=== PATIENT | female | born 1955 | race African-American/Black ===

== ENCOUNTER 2016-10-26 17:35 | Emergency (ER) | payer OTHER ==
[~2016-10-26] VITALS: Ht 175.3 cm; Wt 77.1 kg
[~2016-10-26 17:35] MED LIST: ALBUTEROL SULF8.5 GM INH; ATORVASTATIN CA20 MG ORAL; CITALOPRAM HBR40 M1 ORAL; DILANTIN100 MG ORAL; DILANTIN100 MG PO; FELODIPINE ER10 MG PO; GABAPENTIN800 MG ORAL; GLIPIZIDE5 MG ORAL; GLYBURIDE5 MG PO; LYRICA; LYRICA75 M1 ORAL; METFORMIN HCL1000 M1 ORAL; METFORMIN HCL500 M1 ORAL; NAPROXEN500 M2 ORAL; NIFEDICAL XL60 MG ORAL; NIFEDIPINE10 MG ORAL; NORCO 5-325 TA1 EACH ORAL; PHENYTOIN SODI100 MG ORAL; PIROXICAM; PREDNISONE20 MG ORAL; RISPERDAL; ROBAXIN-750750 MG PO; SOMA350 MG PO; VICODIN; ZITHROMAX250 MG ORAL
[2016-10-26] MEDS ORDERED: levETIRAcetam 500mg/NS100ml 100 ML IVPB ONE (18:15)
--- NOTE | 2016-10-26 18:34 | Emergency Room Report ---
History of Present Illness General Chief Complaint: Seizure Source: Patient, Family Member, Medical Record, EMS Present Illness HPI This patient has a known history of seizure disorder. The patient has not been taking her medications. There is no specific reason. Apparently she ran out. Regardless, she presents after having a seizure at home. This was witnessed by her who is not here. The patient has no specific complaints. Patient denies pain. She denies recent illness. She denies fever or chills. She has no other complaints. Allergies: Coded Allergies: No Known Allergies (Unverified , 08/12/13) Patient History Past Medical History: see triage record, DM, HTN, seizures Social History: Denies: alcohol use, drug use, smoking Reviewed Nursing Documentation: PMH: Agreed, PSxH: Agreed Nursing Documentation-PMH Past Medical History: No History, Except For Hx Cardiac Problems: No Hx Hypertension: Yes Hx Pacemaker: No Hx Asthma: No Hx COPD: No Hx Diabetes: Yes Hx Cancer: No Hx Gastrointestinal Problems: No Hx Dialysis: No Hx Neurological Problems: No Hx Cerebrovascular Accident: No Hx Seizures: Yes Review of Systems All Other Systems: negative except mentioned in HPI Physical Exam Vital Signs Date Time Temp Pulse Resp B/P Pulse Ox O2 Delivery O2 Flow Rate FiO2 10/26/16 17:32 97.3 75 16 147/68 97 Room Air Sp02 EP Interpretation: reviewed, normal General Appearance: no apparent distress, alert, GCS 15, non-toxic Head: normocephalic, atraumatic Eyes: bilateral eye PERRL, bilateral eye normal inspection ENT: hearing grossly normal, normal pharynx, no angioedema, normal voice Neck: full range of motion, supple/symm/no masses Respiratory: chest non-tender, lungs clear, normal breath sounds, speaking full sentences Cardiovascular #1: regular rate, rhythm, no edema Gastrointestinal: normal bowel sounds, non tender, soft, non-distended, no guarding, no rebound Rectal: deferred Musculoskeletal: normal range of motion, non-tender Neurologic: alert, responsive, motor strength/tone normal, sensory intact, speech normal, other - Sleepy but appropriate Psychiatric: judgement/insight normal, memory normal, mood/affect normal, no suicidal/homicidal ideation Skin: normal color, no rash, warm/dry, well hydrated Medical Decision Making Diagnostic Impression: Primary Impression: Seizure disorder Additional Impression: Noncompliance with medication regimen ER Course I suspect the seizures that the patient is presenting with is non-emergent in etiology. The patient has a history of seizures in the past and has returned to baseline with normal neurologic status. The patient is not immunocompromised with no history of known structural brain disease. The patient does not have persistent altered mental status, fever or new focal neurologic deficit. Laboratory workup was noncontributory. I doubt meningitis so a lumbar puncture was not performed. The patient was counseled that, though unlikely, the possibility of an emergent cause of seizure may still be present and that the patient should return immediately if symptoms persist or worsen. I believe the patient is stable for discharge to followup with the primary care provider for further workup. Labs Test 10/26/16 19:20 10/26/16 19:35 Urine Color Yellow Urine Appearance Clear Urine pH 6 (4.5-8.0) Urine Specific [place] 1.015 (1.005-1.035) Urine Protein 3+ (NEGATIVE) Urine Glucose (UA) Negative (NEGATIVE) Urine Ketones Negative (NEGATIVE) Urine Occult Blood Negative (NEGATIVE) Urine Nitrite Negative (NEGATIVE) Urine Bilirubin Negative (NEGATIVE) Urine Urobilinogen 4 MG/DL (0.0-1.0) Urine Leukocyte Esterase Negative (NEGATIVE) Urine RBC 0-2 /HPF (0 - 2) Urine WBC 0-2 /HPF (0 - 2) Urine Squamous Epithelial Cells Occasional /LPF Urine Bacteria Occasional /HPF (NONE) White Blood Count 8.4 K/UL (4.8-10.8) Red Blood Count 4.73 M/UL (4.20-5.40) Hemoglobin 14.4 G/DL (12.0-16.0) Hematocrit 43.6 % (37.0-47.0) Mean Corpuscular Volume 92 FL (80-99) Mean Corpuscular Hemoglobin 30.4 PG (27.0-31.0) Mean Corpuscular Hemoglobin Concent 32.9 G/DL (32.0-36.0) Red Cell Distribution Width 11.7 % (11.6-14.8) Platelet Count 134 K/UL (150-450) Mean Platelet Volume 11.5 FL (6.5-10.1) Neutrophils (%) (Auto) 79.9 % (45.0-75.0) Lymphocytes (%) (Auto) 16.7 % (20.0-45.0) Monocytes (%) (Auto) 2.7 % (1.0-10.0) Eosinophils (%) (Auto) 0.2 % (0.0-3.0) Basophils (%) (Auto) 0.5 % (0.0-2.0) Sodium Level 139 mEQ/L (135-145) Potassium Level 3.8 mEQ/L (3.4-4.9) Chloride Level 103 mEQ/L (98-107) Carbon Dioxide Level 21 mEQ/L (20-30) Anion Gap 15 (5-15) Blood Urea Nitrogen 5 mg/dL (7-23) Creatinine 0.7 mg/dL (0.5-0.9) Estimat Glomerular Filtration Rate > 60 mL/min (>60) Glucose Level 131 mg/dL (74-106) Calcium Level 8.9 mg/dL (8.6-10.2) Total Bilirubin 0.6 mg/dL (0.0-1.2) Aspartate Amino Transf (AST/SGOT) 65 U/L (5-40) Alanine Aminotransferase (ALT/SGPT) 36 U/L (3-33) Alkaline Phosphatase 220 U/L (35-104) Total Protein 7.8 g/dL (6.6-8.7) Albumin 3.7 g/dL (3.5-5.2) Globulin 4.1 g/dL Albumin/Globulin Ratio 0.9 (1.0-2.7) Serum Alcohol < 10 mg/dL EKG Diagnostic Results Rate: normal Rhythm: NSR ST Segments: no acute changes Rhythm Strip Diag. Results EP Interpretation: yes Rate: 70's Rhythm: NSR, no PVC's, no ectopy Other Impression Qwave in III Last Vital Signs Date Time Temp Pulse Resp B/P Pulse Ox O2 Delivery O2 Flow Rate FiO2 10/26/16 17:32 97.3 75 16 147/68 97 Room Air Disposition: HOME, SELF-CARE Condition: Improved Patient Instructions: Seizure, Adult JULES RONQUILLO D.O. Oct 26, 2016 18:34
[2016-10-26 18:55] VITALS: BP 161/68
[2016-10-26 19:19] VITALS: BP 149/72
[2016-10-26 19:57] LABS: BASOPHILS % (AUTO) 0.5 % (0.0-2.0); EOSINOPHILS % (AUTO) 0.2 % (0.0-3.0); LYMPHOCYTES % (AUTO) 16.7 % (20.0-45.0); MEAN CORPUSCULAR HEMOGLOBIN 30.4 PG (27.0-31.0); MEAN CORPUSCULAR HGB CONC 32.9 G/DL (32.0-36.0); MEAN CORPUSCULAR VOLUME 92 FL (80-99); MEAN PLATELET VOLUME 11.5 FL (6.5-10.1); MONOCYTES % (AUTO) 2.7 % (1.0-10.0); NEUTROPHILS % (AUTO) 79.9 % (45.0-75.0); PLATELET COUNT 134 K/UL (150-450); RED BLOOD COUNT 4.73 M/UL (4.20-5.40); RED CELL DISTRIBUTION WIDTH 11.7 % (11.6-14.8); WHITE BLOOD COUNT 8.4 K/UL (4.8-10.8)
[2016-10-26 20:16] LABS: ALANINE AMINOTRANSFERASE 36 U/L (3-33); ALBUMIN/GLOBULIN RATIO 0.9 (1.0-2.7); ALCOHOL < 10 mg/dL; ANION GAP 15 (5-15); ASPARTATE AMINO TRANSFERASE 65 U/L (5-40); CALCIUM 8.9 mg/dL (8.6-10.2); CARBON DIOXIDE 21 mEQ/L (20-30); CHLORIDE 103 mEQ/L (98-107); CREATININE 0.7 mg/dL (0.5-0.9); GLOMERULAR FILTRATION RATE > 60 mL/min (>60); HEMOLYSIS 3; POTASSIUM 3.8 mEQ/L (3.4-4.9); SODIUM 139 mEQ/L (135-145); TOTAL PROTEIN 7.8 g/dL (6.6-8.7)
[2016-10-26] MEDS ORDERED: TUSSIN100 MG/51 PO (20:51)
[2016-10-26] MEDS ORDERED: GLIMEPIRIDE2 MG ORAL (20:51)
[2016-10-26 20:58] LABS: APPEARANCE,URINE CLEAR; KETONES,URINE NEGATIVE (NEGATIVE); LEUKOCYTE ESTERASE ,URINE NEGATIVE (NEGATIVE); NITRITE,URINE NEGATIVE (NEGATIVE); PH,URINE 6 (4.5-8.0); PROTEIN,URINE 3+ (NEGATIVE); UROBILINOGEN,URINE 4 MG/DL (0.0-1.0)
[2016-10-26 21:08] LABS: BACTERIA,URINE OCCASIONAL /HPF; RBC,URINE 0-2 /HPF (0 - 2); SQUAMOUS EPITHELIAL CELL,UR OCCASIONAL /LPF (NONE/OCC); WBC,URINE 0-2 /HPF (0 - 2)
[2016-10-26 22:03] VITALS: BP 132/89
[2016-10-26 22:16] VITALS: BP 132/89
--- NOTE | 2016-10-29 18:18 | Cardiology Report ---
APPROVED REPORT EKG Measurement Heart [id number] Normal sinus rhythm Septal infarct, age undetermined Inferior infarct, age undetermined Abnormal ECG
== END 2016-10-26 22:25 | disposition home or self-care (01) ==
LOC: EDBD 17:35 → EMR 17:47
DX: G40.909 Epilepsy, unspecified, not intractable, without status epilepticus (principal)
CPT/HCPCS: 36415; 80053; 80329; 81003; 85025; 93005; 96361; 96374; 99284; J1953; 96375

== ENCOUNTER 2017-06-11 20:15 | Emergency (ER) | payer OTHER ==
[~2017-06-11] VITALS: Ht 165.1 cm; Wt 74.8 kg
[~2017-06-11 20:15] MED LIST changes: +GLIMEPIRIDE2 MG ORAL; +TUSSIN100 MG/51 PO
[2017-06-11 20:30] VITALS: BP 155/89
[2017-06-11] MEDS ORDERED: Sodium Chloride 500ML 500 ML IV ONE (20:37)
[2017-06-11] MEDS ORDERED: Morphine Sulfate 4mg/ml Inj IVP ONE (20:45)
[2017-06-11 21:07] LABS: BASOPHILS % (AUTO) 1.2 % (0.0-2.0); EOSINOPHILS % (AUTO) 4.2 % (0.0-3.0); HEMATOCRIT 43.6 % (37.0-47.0); HEMOGLOBIN 14.2 G/DL (12.0-16.0); LYMPHOCYTES % (AUTO) 42.3 % (20.0-45.0); MEAN CORPUSCULAR VOLUME 91 FL (80-99); MONOCYTES % (AUTO) 5.9 % (1.0-10.0); NEUTROPHILS % (AUTO) 46.4 % (45.0-75.0); PLATELET COUNT 126 K/UL (150-450); RED BLOOD COUNT 4.81 M/UL (4.20-5.40); RED CELL DISTRIBUTION WIDTH 13.3 % (11.6-14.8); WHITE BLOOD COUNT 7.1 K/UL (4.8-10.8)
[2017-06-11 21:18] LABS: ANION GAP 7 mmol/L (5-15); BLOOD UREA NITROGEN 10 mg/dL (7-18); CALCIUM 8.5 MG/DL (8.5-10.1); CARBON DIOXIDE 25 MMOL/L (21-32); CHLORIDE 104 MMOL/L (98-107); CREATININE 1.1 MG/DL (0.55-1.30); POTASSIUM 3.5 MMOL/L (3.5-5.1); SODIUM 136 MMOL/L (136-145)
[2017-06-11 21:30] VITALS: BP 148/88
[2017-06-11 21:31] LABS: ALANINE AMINOTRANSFERASE 31 U/L (12-78); ALBUMIN 3.2 G/DL (3.4-5.0); ALBUMIN/GLOBULIN RATIO 0.7 (1.0-2.7); ALKALINE PHOSPHATASE 239 U/L (46-116); ASPARTATE AMINO TRANSFERASE 49 U/L (15-37); BILIRUBIN,TOTAL 0.5 MG/DL (0.2-1.0); CREATINE KINASE 110 U/L (26-308)
[2017-06-11 22:26] LABS: APPEARANCE,URINE CLEAR; BILIRUBIN, URINE NEGATIVE (NEGATIVE); GLUCOSE, URINE (UA) NEGATIVE (NEGATIVE); KETONES,URINE NEGATIVE (NEGATIVE); LEUKOCYTE ESTERASE ,URINE NEGATIVE (NEGATIVE); NITRITE,URINE NEGATIVE (NEGATIVE); PH,URINE 6.5 (4.5-8.0); PROTEIN,URINE NEGATIVE (NEGATIVE); UROBILINOGEN,URINE 1 MG/DL (0.0-1.0)
[2017-06-11 22:27] LABS: COLOR,URINE YELLOW
[2017-06-11 22:30] VITALS: BP 145/86
--- NOTE | 2017-06-11 22:30 | Emergency Room Report ---
History of Present Illness General Chief Complaint: Altered Level of Consciousness Source: Family Member Present Illness HPI 61-year-old female presents ED for evaluation. Patient brought in by EMS. at bedside states that patient is more altered than usual for the last 3 days. Upon arrival patient showing no signs of distress. Complaining of abdominal pain. States she feels very weak. Pain is diffuse, 8 out of 10, nonradiating. Denies chest pain or shortness of breath. Denies fevers chills. Denies nausea or vomiting. No other aggravating or relieving factors. Denies any other associated symptoms Allergies: Coded Allergies: No Known Allergies (Unverified , 08/12/13) Patient History Past Medical History: DM, HTN, psych hx Past Surgical History: none Pertinent Family History: none Social History: Denies: smoking, alcohol use, drug use Now: No Immunizations: UTD Reviewed Nursing Documentation: PMH: Agreed, PSxH: Agreed Nursing Documentation-PMH Hx Cardiac Problems: No Hx Hypertension: Yes Hx Pacemaker: No Hx Asthma: No Hx COPD: No Hx Diabetes: Yes Hx Cancer: No Hx Gastrointestinal Problems: No Hx Dialysis: No History Of Psychiatric Problem: Yes - DEPRESSION Hx Neurological Problems: No Hx Cerebrovascular Accident: No Hx Seizures: Yes Review of Systems All Other Systems: negative except mentioned in HPI Physical Exam Vital Signs Date Time Temp Pulse Resp B/P (MAP) Pulse Ox O2 Delivery O2 Flow Rate FiO2 06/11/17 20:18 97.6 67 16 159/91 98 Room Air 97.5 Sp02 EP Interpretation: reviewed, normal General Appearance: GCS 15, non-toxic, mild distress, lethargic Head: normocephalic, atraumatic Eyes: bilateral eye normal inspection, bilateral eye PERRL ENT: hearing grossly normal, normal pharynx, no angioedema, normal voice Neck: full range of motion, supple/symm/no masses Respiratory: chest non-tender, lungs clear, normal breath sounds, speaking full sentences Cardiovascular #1: regular rate, rhythm, no edema Cardiovascular #2: 2+ carotid (R), 2+ carotid (L), 2+ radial (R), 2+ radial (L) , 2+ dorsalis pedis (R), 2+ dorsalis pedis (L) Gastrointestinal: normal bowel sounds, soft, non-distended, no guarding, no rebound, tenderness Rectal: deferred Genitourinary: normal inspection, no CVA tenderness Musculoskeletal: back normal, gait/station normal, normal range of motion, non- tender Neurologic: other - lethargic Psychiatric: other - lethargic Reflexes: 3+ bicep (R), 3+ bicep (L), 3+ tricep (R), 3+ tricep (L), 3+ knee (R) , 3+ knee (L) Skin: normal color, no rash, warm/dry, well hydrated Lymphatic: no adenopathy Medical Decision Making Diagnostic Impression: Primary Impression: Altered level of consciousness ER Course Hospital Course 61-year-old female presents ED more lethargic than baseline. ? history of abdominal pain Differential diagnoses include: dehydration, UTI, sepsis, CVA Clinical course patient placed on stretcher. On welder plasma arc. After initial history and physical ordered labs, IV fluids, EKG, CT brain, CT A/P. Labs reviewed-electrolytes okay, no leukocytosis, hemoglobin/hematocrit stable, UA negative CT brain shows no acute pathology CT A/P - ? mass near pancreas Discussed findings with family and patient. On reassessment patient is more awake alert oriented after IV hydration. Family denies any history of alcohol abuse but states that patient does take norco for pain. possible substance abuse i offered option for admission, but family states that patient looks better and they would like to take her home. Patient agrees i. I feel this is a highly complex case requiring extensive working including EKG/Rhythm strip, Xray/CT/US, Blood/urine lab work, repeat exams while in ED, and administration of strong opiates/narcotics for pain control, admission to hospital or close patient follow up. Diagnosis - ALOC Stable and discharged to home. Followup with PMD. Return to ED if symptoms recur or worsen Labs Test 06/11/17 20:30 06/11/17 22:00 White Blood Count 7.1 K/UL (4.8-10.8) Red Blood Count 4.81 M/UL (4.20-5.40) Hemoglobin 14.2 G/DL (12.0-16.0) Hematocrit 43.6 % (37.0-47.0) Mean Corpuscular Volume 91 FL (80-99) Mean Corpuscular Hemoglobin 29.6 PG (27.0-31.0) Mean Corpuscular Hemoglobin Concent 32.7 G/DL (32.0-36.0) Red Cell Distribution Width 13.3 % (11.6-14.8) Platelet Count 126 K/UL (150-450) Mean Platelet Volume 12.4 FL (6.5-10.1) Neutrophils (%) (Auto) 46.4 % (45.0-75.0) Lymphocytes (%) (Auto) 42.3 % (20.0-45.0) Monocytes (%) (Auto) 5.9 % (1.0-10.0) Eosinophils (%) (Auto) 4.2 % (0.0-3.0) Basophils (%) (Auto) 1.2 % (0.0-2.0) Sodium Level 136 MMOL/L (136-145) Potassium Level 3.5 MMOL/L (3.5-5.1) Chloride Level 104 MMOL/L (98-107) Carbon Dioxide Level 25 MMOL/L (21-32) Anion Gap 7 mmol/L (5-15) Blood Urea Nitrogen 10 mg/dL (7-18) Creatinine 1.1 MG/DL (0.55-1.30) Estimat Glomerular Filtration Rate > 60 mL/min (>60) Glucose Level 192 MG/DL (74-106) Calcium Level 8.5 MG/DL (8.5-10.1) Total Bilirubin 0.5 MG/DL (0.2-1.0) Aspartate Amino Transf (AST/SGOT) 49 U/L (15-37) Alanine Aminotransferase (ALT/SGPT) 31 U/L (12-78) Alkaline Phosphatase 239 U/L (46-116) Total Creatine Kinase 110 U/L (26-308) Creatine Kinase MB 2.0 NG/ML (0.0-3.6) Creatine Kinase MB Relative Index 1.8 Troponin I 0.000 ng/mL (0.000-0.056) Total Protein 8.0 G/DL (6.4-8.2) Albumin 3.2 G/DL (3.4-5.0) Globulin 4.8 g/dL Albumin/Globulin Ratio 0.7 (1.0-2.7) Lipase 63 U/L (73-393) Urine Color Yellow Urine Appearance Clear Urine pH 6.5 (4.5-8.0) Urine Specific [place] 1.010 (1.005-1.035) Urine Protein Negative (NEGATIVE) Urine Glucose (UA) Negative (NEGATIVE) Urine Ketones Negative (NEGATIVE) Urine Occult Blood Negative (NEGATIVE) Urine Nitrite Negative (NEGATIVE) Urine Bilirubin Negative (NEGATIVE) Urine Urobilinogen 1 MG/DL (0.0-1.0) Urine Leukocyte Esterase Negative (NEGATIVE) EKG Diagnostic Results Rate: normal Rhythm: NSR ST Segments: no acute changes ASA given to the pt in ED: No Rhythm Strip Diag. Results EP Interpretation: yes Rhythm: NSR, no PVC's, no ectopy CT/MRI/US Diagnostic Results CT/MRI/US Diagnostic Results #1: Imaging Test Ordered: CT Head Impression no acute process CT/MRI/US Diagnostic Results #2: Imaging Test Ordered: CT A/P Impression Cirrhosis. Cholecystectomy. Intra-and extra hepatic biliary dilatation. Extra hepatic common duct measuring up to 2.4 cm. Suggestion of small hypodense area near the uncinate process of the pancreas measuring 1.3 cm. Question lesion. Recommend comparison with priors. Consider nonemergent MR imaging of the pancreas. Last Vital Signs Date Time Temp Pulse Resp B/P (MAP) Pulse Ox O2 Delivery O2 Flow Rate FiO2 06/11/17 21:18 97.6 06/11/17 20:18 67 16 159/91 98 Room Air Status: improved Disposition: HOME, SELF-CARE Condition: Stable Referrals: GANESH HOLMANREFERRING (PCP) KATE ADAM M.D. Jun 11, 2017 22:30
[2017-06-11 23:30] VITALS: BP 142/86
[2017-06-11 23:40] VITALS: BP 145/86
--- NOTE | 2017-06-12 09:12 | Diagnostic Imaging Report ---
Indication: Reason For Exam: AMS Technique: Continuous helical CT scanning of the head was performed without intravenous contrast material. Axial and coronal 5 mm sections were generated. Radiation dose was minimized using automated exposure control Dose: Total Dose Length Product - DLP 1312.[address] Dose Index - CTDIvol(s) 70.38 mGy. Comparison: Findings: The ventricular system is normal in size and configuration. There is no shift of midline structures. No abnormal extra-axial fluid collections are noted. There is no evidence of intracerebral bleeding. No other abnormal high or low density areas are noted within the brain. Impression: Normal CT scan of the head without contrast material. This agrees with the preliminary interpretation provided overnight by [facility] service. The CT scanner at [facility] is accredited by the [employer] and the scans are performed using protocols designed to limit radiation exposure to as low as reasonably achievable to attain images of sufficient resolution adequate for diagnostic evaluation.
--- NOTE | 2017-06-12 09:18 | Diagnostic Imaging Report ---
Clinical Indication: Abdominal pain Technique: No oral contrast utilized, per emergency room physician request IV administration nonionic contrast. Venous phase spiral acquisition obtained through the abdomen and pelvis. Multiplanar reconstructions were generated. Total dose length product 709.37 mGycm. CTDIvol(s) 13.68 mGy. Dose reduction achieved using automated exposure control Comparison: 12/10/2007 Findings: Normal appendix. No evidence of diverticulosis or diverticulitis. No small bowel distention. No free or loculated intraperitoneal air or fluid is evident. The distal esophagus, stomach, duodenum are unremarkable. The patient is status post cholecystectomy. The common bile duct is quite dilated, measuring up to 25 mm transverse dimension. It is also demonstrated to be dilated on the prior study, but less severely than currently, previously 16 mm. However, no downstream obstructing lesion is demonstrated. There is also mild central intrahepatic biliary ductal dilatation. The gallbladder is surgically absent. The liver demonstrates mild atrophy which is not evident on the prior study. There is hepatic surface nodularity which is also a new finding. No focal hepatic abnormality. The pancreas is slightly atrophic, demonstrates a single calcification within the body. There is very questionably a 1 cm hypoattenuating lesion in the uncinate process of the pancreas. This is seen only on a single slice, however. If real, not clearly evident on the previous exam The spleen, adrenals are unremarkable. The kidneys demonstrate lobulated contours bilaterally. A punctate calcification is seen in the right upper pole, probably parenchymal. Subcentimeter low-attenuation lesions are demonstrated, too small to characterize but most likely representing benign simple cysts. No retroperitoneal or mesenteric mass or adenopathy. The uterus and ovaries are unremarkable. The lung bases demonstrate posterior dependent atelectasis on the left. The heart is upper limits normal in size. The bones are unremarkable. Impression: Evidence of hepatic cirrhosis, with hepatic surface nodularity and mild atrophy. This is a new finding since prior exam Markedly dilated common bile ducts, common hepatic duct, and minimal central intrahepatic ductal dilatation.. May just be related to age and postcholecystectomy state. No downstream obstructive lesion demonstrated. Nonetheless, correlation with liver function tests is recommended. Very questionable low-attenuation lesion in the uncinate process of the pancreas. Recommend further follow-up with pancreas specific MRI Kidneys demonstrate contour lobulation, probably related to old insults. There are also bilateral renal cysts, bilateral subcentimeter low-attenuation lesions, and right renal calyceal versus parenchymal calculi. Minimal posterior dependent pulmonary parenchymal atelectatic changes This agrees with the preliminary interpretation provided overnight by [facility]. The CT scanner at [facility] is accredited by the [employer] and the scans are performed using protocols designed to limit radiation exposure to as low as reasonably achievable to attain images of sufficient resolution adequate for diagnostic evaluation.
--- NOTE | 2017-06-12 15:17 | Cardiology Report ---
APPROVED REPORT EKG Measurement Heart [id number] Normal sinus rhythm Possible Left atrial enlargement RSR' or QR pattern in V1 suggests right ventricular conduction delay Borderline ECG
== END 2017-06-11 23:42 | disposition home or self-care (01) ==
LOC: EDBD 20:15 → EMR 20:55
DX: R41.82 Altered mental status, unspecified (principal); F32.9 Major depressive disorder, single episode, unspecified; I10 Essential (primary) hypertension; E11.9 Type 2 diabetes mellitus without complications
CPT/HCPCS: 36415; 70450; 74177; 80053; 81003; 82550; 82553; 82962; 83690; 84484; 85025; 93005; 96361; 96374; 99284; J2270; Q9967

== ENCOUNTER 2018-11-30 13:51 | Inpatient (IN) | payer MEDICARE, OTHER ==
[~2018-11-30] VITALS: Ht 170.2 cm; Wt 81.6 kg
[2018-11-30 14:00] VITALS: BP 108/85
--- NOTE | 2018-11-30 14:00 | NUR ---
ED Nurse Note: pt brought by RA from home with friend due to headache for 2 days. no recent injury. diaphoretic noted. follow command, appears to be irretable. AAO x4. respirations even and non-labored noted. [address] Shipley notified. pt also c/o abdominal pain and unable to eat for 2 days. no n/v/d at this time. skin warm to touch. no open wound noted. on manager cardiac. will wait for the further order.
[2018-11-30] MEDS ORDERED: Dexamethasone 4mg/ml vial IVP ONE (14:15)
[2018-11-30] MEDS ORDERED: DiphenhydrAMINE 50mg/ml Inj IVP ONE (14:15)
--- NOTE | 2018-11-30 14:20 | NUR ---
ED Nurse Note: pt refused and unable to stay in calm for CT head. Dr. Shipley notified. order hold for now.
--- NOTE | 2018-11-30 14:26 | Emergency Room Report ---
History of Present Illness General Chief Complaint: Headache Source: Patient, Medical Record Present Illness HPI 63-year-old female presents with recurrent headache left-sided gradual in onset started 3 days ago no aggravating relieving factors, not worse in recumbent position no fever or chills, patient states it similar to previous, aching in nature severity is severe, she also endorses a cough with chest ache x3 days constant no abdominal pain no diarrhea no sputum production patient presents for evaluation Allergies: Coded Allergies: No Known Allergies (Unverified , 08/12/13) Patient History Past Medical History: see triage record Now: No Reviewed Nursing Documentation: PMH: Agreed; PSxH: Agreed Nursing Documentation-PMH Past Medical History: No History, Except For Hx Cardiac Problems: No Hx Hypertension: Yes Hx Pacemaker: No Hx Asthma: No Hx COPD: No Hx Diabetes: Yes Hx Cancer: No Hx Gastrointestinal Problems: No Hx Dialysis: No Hx Neurological Problems: No Hx Cerebrovascular Accident: No Hx Seizures: Yes - Last one was 10/2018 Review of Systems All Other Systems: negative except mentioned in HPI Physical Exam Vital Signs Date Time Temp Pulse Resp B/P (MAP) Pulse Ox O2 Delivery O2 Flow Rate FiO2 11/30/18 13:47 82 16 174/102 (126) 97 Sp02 EP Interpretation: reviewed, normal General Appearance: well appearing, no apparent distress, alert Head: normocephalic, atraumatic Eyes: bilateral eye PERRL, bilateral eye EOMI ENT: uvula midline, dry mucus membranes Neck: supple, thyroid normal, supple/symm/no masses Respiratory: lungs clear, no respiratory distress, no retraction, no accessory muscle use Cardiovascular #1: normal peripheral pulses, regular rate, rhythm, no edema, no gallop, no murmur Gastrointestinal: non tender, soft, no guarding, no rebound Musculoskeletal: normal inspection Neurologic: alert, oriented x3, other - Nerves II through XII intact, stable gait, out of 5 strength upper and lower extremities Psychiatric: mood/affect normal Skin: no rash, warm/dry Medical Decision Making Diagnostic Impression: Primary Impression: Headache Qualified Codes: R51 - Headache Additional Impressions: Dehydration Altered mental state Qualified Codes: R41.82 - Altered mental status, unspecified ER Course Based on the patient's history and physical there is very low clinical suspicion for significant intracranial pathology. There are no red flags of SHEIKH, not sudden in onset, not maximal in onset, no acute neurological findings, no fever with head stiffness. History of headaches yes Low suspicion for subarachnoid hemorrhage, encephalitis, meningitis. Patient does show signs of dehydration Headache cocktail given, patient refused head CT initially aware of the risks and benefits, patient feels better and going to the bathroom without any issues , no posterior signs Reevaluation 7:42pm patient accepted head ct, refused ct abdomen and pelvis Will admit patient for obs, for dehydration. Patient admitted to Dr. Arrieta for obs. Laboratory Tests Test 11/30/18 15:45 11/30/18 16:45 11/30/18 16:55 White Blood Count 6.8 K/UL (4.8-10.8) Red Blood Count 5.34 M/UL (4.20-5.40) Hemoglobin 16.1 G/DL (12.0-16.0) H Hematocrit 47.4 % (37.0-47.0) H Mean Corpuscular Volume 89 FL (80-99) Mean Corpuscular Hemoglobin 30.1 PG (27.0-31.0) Mean Corpuscular Hemoglobin Concent 33.9 G/DL (32.0-36.0) Red Cell Distribution Width 12.7 % (11.6-14.8) Platelet Count 108 K/UL (150-450) L Mean Platelet Volume 10.4 FL (6.5-10.1) H Neutrophils (%) (Auto) 73.7 % (45.0-75.0) Lymphocytes (%) (Auto) 17.9 % (20.0-45.0) L Monocytes (%) (Auto) 6.2 % (1.0-10.0) Eosinophils (%) (Auto) 0.6 % (0.0-3.0) Basophils (%) (Auto) 1.6 % (0.0-2.0) Prothrombin Time 11.4 SEC (9.30-11.50) Prothrombin Time INR 1.1 (0.9-1.1) PTT 31 SEC (23-33) Lactic Acid Level 1.20 mmol/L (0.4-2.0) Troponin I 0.000 ng/mL (0.000-0.056) Sodium Level 144 MMOL/L (136-145) Potassium Level 3.8 MMOL/L (3.5-5.1) Chloride Level 107 MMOL/L (98-107) Carbon Dioxide Level 22 MMOL/L (21-32) Anion Gap 15 mmol/L (5-15) Blood Urea Nitrogen 11 mg/dL (7-18) Creatinine 0.7 MG/DL (0.55-1.30) Estimate Glomerular Filtration Rate > 60 mL/min (>60) Glucose Level 104 MG/DL (74-106) Calcium Level 9.1 MG/DL (8.5-10.1) Phosphorus Level 3.8 MG/DL (2.5-4.9) Magnesium Level 1.7 MG/DL (1.8-2.4) L Total Bilirubin 1.2 MG/DL (0.2-1.0) H Direct Bilirubin 0.5 MG/DL (0.0-0.3) H Aspartate Amino Transferase (AST) 72 U/L (15-37) H Alanine Aminotransferase (ALT) 38 U/L (12-78) Alkaline Phosphatase 283 U/L (46-116) H Total Creatine Kinase 70 U/L (26-308) Creatine Kinase MB 1.0 NG/ML (0.0-3.6) Creatine Kinase MB Relative Index 1.4 Pro-B-Type Natriuretic Peptide 209 pg/mL (0-125) H Total Protein 8.1 G/DL (6.4-8.2) Albumin 3.0 G/DL (3.4-5.0) L Globulin 5.1 g/dL Albumin/Globulin Ratio 0.6 (1.0-2.7) L Lipase 51 U/L (73-393) L EKG Diagnostic Results EKG Time: 14:42 EP Interpretation: NSR, rate 77, QTc 504, no acute ST elevations, normal axis Rate: normal Rhythm: NSR ST Segments: no acute changes Rhythm Strip Diag. Results Rhythm Strip Time: 14:42 EP Interpretation: yes Rate: 79 Rhythm: NSR, no PVC's, no ectopy Chest X-Ray Diagnostic Results Chest X-Ray Diagnostic Results : Chest X-Ray Ordered: Yes # of Views/Limited/Complete: 1 View Indication: Other - headache EP Interpretation: Yes Interpretation: no consolidation, no effusion, no pneumothorax, no acute cardiopulmonary disease Impression: No acute disease Electronically Signed by: Shoaib Shipley MD CT/MRI/US Diagnostic Results CT/MRI/US Diagnostic Results : Impression Patient : BHASKAR HOGAN Referring Physician: Shoaib Shipley MD ID Number: [id number] Service Date: 11/30/18 : 1955 Report Date: 11/30/18 Gender: F Accession No.: [id number] Location: [facility] Procedure: CT Head no Contrast EXAM: CT Head Without Intravenous Contrast CLINICAL HISTORY: PAIN TECHNIQUE: Axial computed tomography images of the head/brain without intravenous contrast. CTDI is 70.38 mGy and DLP is 1428.65 mGy-cm. One or more of the following dose reduction techniques were used: automated exposure control, adjustment of the mA and/or kV according to patient size, use of iterative reconstruction technique. COMPARISON: 06/11/17 CT head FINDINGS: Brain: Unremarkable. No hemorrhage. No significant white matter disease. No edema. Ventricles: Unremarkable. No ventriculomegaly. Bones/joints: Unremarkable. No acute fracture. Soft tissues: Unremarkable. Sinuses: Unremarkable as visualized. No acute sinusitis. Mastoid air cells: Unremarkable as visualized. No mastoid effusion. IMPRESSION: Normal head/brain CT. Dictated By: Fabian Gonzalez M.D. Electronically Signed By: Fabian Gonzalez M.D. Signed Date/Time 11/30/182015 CC: Shoaib Shipley MD Last Vital Signs Date Time Temp Pulse Resp B/P (MAP) Pulse Ox O2 Delivery O2 Flow Rate FiO2 11/30/18 13:47 82 16 174/102 (676) 12 Disposition: ADMITTED INPATIENT Condition: Stable Shoaib Shipley MD Nov 30, 2018 14:26
--- NOTE | 2018-11-30 15:00 | NUR ---
ED Nurse Note: pt refused to draw blood and uncooperative to stay calm. pt yelling and screaming that " I want to leave." family member and RN tried to explain benefit of blood work. will give pt for time. Dr. Shipley notified.
--- NOTE | 2018-11-30 15:29 | Diagnostic Imaging Report ---
EXAM: XR Chest, 1 View CLINICAL HISTORY: Chest pain TECHNIQUE: Frontal view of the chest. COMPARISON: Chest x-rays dated 02/10/13 FINDINGS: Lungs: Unremarkable. The lungs appear clear. No focal consolidation. Pleural space: Unremarkable. The costophrenic angles are sharp. No visible pneumothorax. Heart: Unremarkable. No cardiomegaly. Mediastinum: Unremarkable. Bones/joints: Unremarkable. Vasculature: Atherosclerotic calcifications are noted within the aortic arch. Tubes, lines and devices: Telemetry leads overlie the thorax. IMPRESSION: No acute findings.
[2018-11-30 16:16] LABS: BASOPHILS % (AUTO) 1.6 % (0.0-2.0); EOSINOPHILS % (AUTO) 0.6 % (0.0-3.0); HEMATOCRIT 47.4 % (37.0-47.0); HEMOGLOBIN 16.1 G/DL (12.0-16.0); LYMPHOCYTES % (AUTO) 17.9 % (20.0-45.0); MEAN CORPUSCULAR VOLUME 89 FL (80-99); MONOCYTES % (AUTO) 6.2 % (1.0-10.0); NEUTROPHILS % (AUTO) 73.7 % (45.0-75.0); PLATELET COUNT 108 K/UL (150-450); RED BLOOD COUNT 5.34 M/UL (4.20-5.40); RED CELL DISTRIBUTION WIDTH 12.7 % (11.6-14.8); WHITE BLOOD COUNT 6.8 K/UL (4.8-10.8)
[2018-11-30 16:33] LABS: INR 1.1 (0.9-1.1)
[2018-11-30 17:00] VITALS: BP 159/99
--- NOTE | 2018-11-30 17:08 | NUR ---
ED Nurse Note: pt lying in bed comfortably without facial grimacing or moaning noted. on cardic monitor. will wait for the further order.
[2018-11-30 17:45] LABS: ALANINE AMINOTRANSFERASE 38 U/L (12-78); ALBUMIN/GLOBULIN RATIO 0.6 (1.0-2.7); ALKALINE PHOSPHATASE 283 U/L (46-116); ANION GAP 15 mmol/L (5-15); ASPARTATE AMINO TRANSFERASE 72 U/L (15-37); BILIRUBIN,TOTAL 1.2 MG/DL (0.2-1.0); BLOOD UREA NITROGEN 11 mg/dL (7-18); CALCIUM 9.1 MG/DL (8.5-10.1); CARBON DIOXIDE 22 MMOL/L (21-32); CHLORIDE 107 MMOL/L (98-107); CREATINE KINASE 70 U/L (26-308); CREATININE 0.7 MG/DL (0.55-1.30); PHOSPHORUS 3.8 MG/DL (2.5-4.9); POTASSIUM 3.8 MMOL/L (3.5-5.1); SODIUM 144 MMOL/L (136-145)
[2018-11-30 17:51] LABS: BILIRUBIN,DIRECT 0.5 MG/DL (0.0-0.3)
[2018-11-30] MEDS ORDERED: Isovue-300 100ml vial INJ PRN (19:15)
--- NOTE | 2018-11-30 19:16 | NUR ---
ED Nurse Note: Patient resting comfortably with no s/s of acute distress.
--- NOTE | 2018-11-30 19:16 | NUR ---
HAND-OFF: Report given to SRAVAN Jauregui.
--- NOTE | 2018-11-30 20:00 | NUR ---
ED Nurse Note: Patient provided a sandwich at the request of boyfriend. Will continue monitor.
[2018-11-30] MEDS ORDERED: Labetalol 5mg/ml 20ml vial IV ONE (20:15)
--- NOTE | 2018-11-30 20:17 | Diagnostic Imaging Report ---
EXAM: CT Head Without Intravenous Contrast CLINICAL HISTORY: PAIN TECHNIQUE: Axial computed tomography images of the head/brain without intravenous contrast. CTDI is 70.38 mGy and DLP is 1428.65 mGy-cm. One or more of the following dose reduction techniques were used: automated exposure control, adjustment of the mA and/or kV according to patient size, use of iterative reconstruction technique. COMPARISON: 06/11/17 CT head FINDINGS: Brain: Unremarkable. No hemorrhage. No significant white matter disease. No edema. Ventricles: Unremarkable. No ventriculomegaly. Bones/joints: Unremarkable. No acute fracture. Soft tissues: Unremarkable. Sinuses: Unremarkable as visualized. No acute sinusitis. Mastoid air cells: Unremarkable as visualized. No mastoid effusion. IMPRESSION: Normal head/brain CT.
--- NOTE | 2018-11-30 20:50 | NUR ---
ED Nurse Note: Report called in to Arsen RN.
--- NOTE | 2018-11-30 20:55 | NUR ---
Receive a report from SRAVAN Jauregui from ED.
--- NOTE | 2018-11-30 21:09 | NUR ---
ED Nurse Note: Patient transported to floor without incident by wire technician.
--- NOTE | 2018-11-30 21:10 | NUR ---
NURSE NOTES: Pt newly admitted from ER via gurney with the spouse. Pt is disoriented but awake with minimal verbal response. IV on left hand and running N/S without infiltration. Unable to take any medical history from pt but the spouse shares her medical histories. Belonging has been checked. Call light within reach. Bed is locked and lowest with bed alarm on. The spouse at bed side. Will continue to monitor.
[2018-11-30 22:00] VITALS: BP 170/90
--- NOTE | 2018-11-30 22:30 | NUR ---
NURSE NOTES: Call Dr. Arrieta for pt's admission and receive admission orders. Order noted and carried out. Will verify all medication pipeline pharmacy. Will continue to monitor.
[2018-11-30] MEDS ORDERED: Ketorolac 30mg Inj IV PRN (22:45)
--- NOTE | 2018-11-30 22:45 | NUR ---
NURSE NOTES: Noted minimal verbal response. During checking BP on right arm, pt shows severe rigidity and uncooperativeness. Does not open arm and hard to take BP with spouse's help and barely checked as 170/90mmHg. Pt is next nurse's station with bed alarm on. Will continue to monitor.
[2018-11-30] MEDS: D5NS 1,000 ML IV SCH (23:45)
[2018-12-01 00:30] VITALS: BP 180/80
--- NOTE | 2018-12-01 00:45 | NUR ---
NURSE NOTES: Pt was asleep but awoke by checking BP and was not cooperative. Manual BP checked as 180/80mmHg. Tried to administer prn Clodine 0.1mt 1 t po but spit out the medication despite risks and benefits including spouse' support. CN made aware. Will continue to monitor and will try again.
[2018-12-01] MEDS: HYDROmorphone 1mg/ml Carpuject IVP PRN ×2 (00:59→08:45)
[2018-12-01] MEDS: LORazepam Inj 2mg/ml 1ml IV PRN ×2 (02:17→12:49)
--- NOTE | 2018-12-01 02:30 | NUR ---
NURSE NOTES: After Ativan 1mg IVP for agitation, pt fell asleep. The spouse is at bed side. Will continue to monitor.
[2018-12-01 04:50] VITALS: BP 166/100
[2018-12-01] MEDS ORDERED: NovoLOG Insulin Flexpen SUBQ SCH (06:30)
--- NOTE | 2018-12-01 07:30 | NUR ---
NURSE NOTES: Pt disheveled moving restless in bed. Sitting up laying down attempting to walk to the bathroom, encouraged to use bedside commode . Pt is non verbal at this time. NPO status. Call light is in reach, bed is in safe position
[2018-12-01 07:33] LABS: BASOPHILS % (AUTO) 0.5 % (0.0-2.0); HEMATOCRIT 41.3 % (37.0-47.0); HEMOGLOBIN 14.5 G/DL (12.0-16.0); LYMPHOCYTES % (AUTO) 23.1 % (20.0-45.0); MEAN CORPUSCULAR VOLUME 88 FL (80-99); MONOCYTES % (AUTO) 2.9 % (1.0-10.0); NEUTROPHILS % (AUTO) 73.5 % (45.0-75.0); PLATELET COUNT 102 K/UL (150-450); RED BLOOD COUNT 4.71 M/UL (4.20-5.40); RED CELL DISTRIBUTION WIDTH 12.3 % (11.6-14.8); WHITE BLOOD COUNT 5.2 K/UL (4.8-10.8)
[2018-12-01 08:00] VITALS: BP 130/71
--- NOTE | 2018-12-01 08:00 | NUR ---
HAND-OFF: Report given to SRAVAN Infante. Round is done.
[2018-12-01 08:11] LABS: ALANINE AMINOTRANSFERASE 34 U/L (12-78); ALBUMIN/GLOBULIN RATIO 0.6 (1.0-2.7); ALKALINE PHOSPHATASE 259 U/L (46-116); AMYLASE 32 U/L (25-115); ANION GAP 13 mmol/L (5-15); ASPARTATE AMINO TRANSFERASE 63 U/L (15-37); BILIRUBIN,TOTAL 0.9 MG/DL (0.2-1.0); BLOOD UREA NITROGEN 15 mg/dL (7-18); CALCIUM 9.2 MG/DL (8.5-10.1); CARBON DIOXIDE 20 MMOL/L (21-32); CHLORIDE 113 MMOL/L (98-107); CHOLESTEROL 142 MG/DL (< 200); CREATININE 0.8 MG/DL (0.55-1.30); HDL CHOLESTEROL 39 MG/DL (40-60); POTASSIUM 4.2 MMOL/L (3.5-5.1); SODIUM 146 MMOL/L (136-145); TRIGLYCERIDES 66 MG/DL (30-150)
[2018-12-01] MEDS: Phenytoin 100mg cap ORAL SCH ×3 (08:44→17:31)
[2018-12-01] MEDS: Pantoprazole Inj IVP SCH (08:44)
[2018-12-01] MEDS: D5NS 1,000 ML IV SCH ×2 (08:45→17:39)
--- NOTE | 2018-12-01 08:49 | General Progress Note ---
Assessment/Plan Status: stable Assessment/Plan: Full Dictation in progress A/P: 1- Acute gastritis 2- DM 3- Psych Plan: will order Abd CT Subjective Allergies: Coded Allergies: No Known Allergies (Unverified , 08/12/13) Objective Last 24 Hour Vital Signs Date Time Temp Pulse Resp B/P (MAP) Pulse Ox O2 Delivery O2 Flow Rate FiO2 12/01/18 04:50 97.7 93 18 166/100 (122) 95 12/01/18 03:09 Room Air 12/01/18 01:07 180/80 12/01/18 00:30 97.9 80 18 180/80 (113) 95 11/30/18 22:00 Room Air 11/30/18 22:00 98.0 62 18 170/90 (116) 95 11/30/18 21:10 98.1 70 15 188/94 99 Room Air 11/30/18 20:13 81 188/94 11/30/18 17:00 98.1 70 15 159/99 99 Room Air 11/30/18 14:00 98.3 85 17 108/85 98 Room Air 11/30/18 13:47 82 16 174/102 (126) 97 Intake and Output 11/30/18 12/01/18 19:00 07:00 Intake Total 1000 ml 800 ml Balance 1000 ml 800 ml Intake Oral 0 ml IV Total 1000 ml 800 ml # Voids 3 # Bowel Movements 1 Laboratory Tests 11/30/18 15:45: White Blood Count 6.8, Red Blood Count 5.34, Hemoglobin 16.1H, Hematocrit 47.4H , Mean Corpuscular Volume 89, Mean Corpuscular Hemoglobin 30.1, Mean Corpuscular Hemoglobin Concent 33.9, Red Cell Distribution Width 12.7, Platelet Count 108L, Mean Platelet Volume 10.4H, Neutrophils (%) (Auto) 73.7, Lymphocytes (%) (Auto) 17.9L, Monocytes (%) (Auto) 6.2, Eosinophils (%) (Auto) 0.6, Basophils (%) (Auto) 1.6, Prothrombin Time 11.4, Prothromb Time International Ratio 1.1, Activated Partial Thromboplast Time 31, Lactic Acid Level 1.20 11/30/18 16:45: Troponin I 0.000 11/30/18 16:55: Sodium Level 144, Potassium Level 3.8, Chloride Level 107, Carbon Dioxide Level 22, Anion Gap 15, Blood Urea Nitrogen 11, Creatinine 0.7, Estimat Glomerular Filtration Rate > 60, Glucose Level 104, Calcium Level 9.1, Phosphorus Level 3.8 , Magnesium Level 1.7L, Total Bilirubin 1.2H, Direct Bilirubin 0.5H, Aspartate Amino Transf (AST/SGOT) 72H, Alanine Aminotransferase (ALT/SGPT) 38, Alkaline Phosphatase 283H, Total Creatine Kinase 70, Creatine Kinase MB 1.0, Creatine Kinase MB Relative Index 1.4, Pro-B-Type Natriuretic Peptide 209H, Total Protein 8.1, Albumin 3.0L, Globulin 5.1, Albumin/Globulin Ratio 0.6L, Lipase 51L 12/01/18 05:30: White Blood Count 5.2, Red Blood Count 4.71, Hemoglobin 14.5, Hematocrit 41.3, Mean Corpuscular Volume 88, Mean Corpuscular Hemoglobin 30.7, Mean Corpuscular Hemoglobin Concent 35.1, Red Cell Distribution Width 12.3, Platelet Count 102L, Mean Platelet Volume 11.5H, Neutrophils (%) (Auto) 73.5, Lymphocytes (%) (Auto) 23.1, Monocytes (%) (Auto) 2.9, Eosinophils (%) (Auto) 0.0, Basophils (%) (Auto ) 0.5, Troponin I [Pending], Sodium Level 146H, Potassium Level 4.2, Chloride Level 113H, Carbon Dioxide Level 20L, Anion Gap 13, Blood Urea Nitrogen 15, Creatinine 0.8, Estimat Glomerular Filtration Rate > 60, Glucose Level 158H, Calcium Level 9.2, Total Bilirubin 0.9, Aspartate Amino Transf (AST/SGOT) 63H, Alanine Aminotransferase (ALT/SGPT) 34, Alkaline Phosphatase 259H, Total Protein 8.3H, Albumin 3.0L, Globulin 5.3, Albumin/Globulin Ratio 0.6L, Lipase 50L, Hemoglobin A1c 5.5, Triglycerides Level 66, Cholesterol Level 142, LDL Cholesterol 95, HDL Cholesterol 39L, Cholesterol/HDL Ratio 3.6, Amylase Level 32 , Thyroid Stimulating Hormone (TSH) 0.175L Height (Feet): 5 Height (Inches): 7.00 Weight (Pounds): 180 Maryann Arrieta MD Dec 01, 2018 08:49
--- NOTE | 2018-12-01 08:49 | History & Physical ---
History and Physical History & Physicial Dictation completed on 840 AM Maryann Arrieta MD Dec 01, 2018 08:49
[2018-12-01] MEDS ORDERED: D5NS 1000ml IV ONE (10:24)
--- NOTE | 2018-12-01 10:40 | GI Initial Consult Note ---
History of Present Illness General Date patient seen: Dec 01, 2018 Time patient seen: 10:34 Reason for Hospitalization: Headache Referring physician: KAI ONEAL Reason for Consultation: ABDOMINAL PAIN Present Illness HPI 63-year-old female presents with recurrent headache left-sided gradual in onset started 3 days ago no aggravating relieving factors, not worse in recumbent position no fever or chills, patient states it similar to previous, aching in nature severity is severe, she also endorses a cough with chest ache x3 days constant no abdominal pain no diarrhea no sputum production patient presents for evaluation. GI consulted for abdominal pain. ROS limited, patient unable to recall any significant history at this time. Patient seen, awake alert no apparent distress. The patient's abdomen is soft, nondistended, nontender. Bowel sounds active all 4 quadrants. Noted that the patient has abdominal guarding. The patient presented with altered mental status, performed in ER which was normal labs reviewed; no leukocytosis, no anemia, AST 63, phosphatase 259. Unknown history of endoscopic colonoscopy. Home Meds Reported Medications Glimepiride (GLIMEPIRIDE) 2 Mg Tablet, 1 MG ORAL BEFORE BREAKFAST, TAB 10/26/16 Guaifenesin (TUSSIN) 100 Mg/5 Ml Liquid, 100 MG PO, ML 10/26/16 Glyburide (GLYBURIDE) 5 Mg Tablet, 5 MG PO, TAB 12/12/15 Nifedipine* (NIFEDIPINE*) 10 Mg Capsule, 1000 MG ORAL DAILY, CAP 12/12/15 Pregabalin* (LYRICA*) 75 Mg Capsule, 300 MG ORAL BID, CAP 12/12/15 Carisoprodol* (SOMA*) 350 Mg Tablet, 350 MG PO Q6H, TAB 12/12/15 Metformin Hcl* (METFORMIN HCL*) 500 Mg Tablet, ORAL TWICE A DAY, TAB 12/12/15 Phenytoin Sodium Extended* (PHENYTOIN SODIUM EXTENDED*) 100 Mg Capsule, 100 MG ORAL THREE TIMES A DAY, #90 CAP 0 Refills 02/10/13 Felodipine (FELODIPINE ER) 10 Mg Tab.er.24h, 10 MG PO 02/10/13 Atorvastatin Calcium* (ATORVASTATIN CALCIUM*) 20 Mg Tablet, 20 MG ORAL BEDTIME, TAB 02/10/13 Glipizide* (GLIPIZIDE*) 5 Mg Tablet, 5 MG ORAL BIDAC, TAB 02/10/13 Metformin Hcl* (METFORMIN HCL*) 1,000 Mg Tablet, 1000 MG ORAL BID, TAB 02/10/13 Citalopram Hydrobromide* (CITALOPRAM HBR*) 40 Mg Tablet, 40 MG ORAL DAILY, TAB 02/10/13 Gabapentin* (GABAPENTIN*) 800 Mg Tablet, 800 MG ORAL THREE TIMES A DAY, TAB 02/10/13 [Piroxicam] No Conflict Check 01/06/12 [Vicodin] No Conflict Check 01/06/12 [Risperdal] No Conflict Check 01/06/12 [Lyrica] No Conflict Check 01/06/12 Med list reviewed/reconciled: Yes Allergies: Coded Allergies: No Known Allergies (Unverified , 08/12/13) Patient History Limited by: medical condition History Provided By: Patient, Medical Record PMH Narrative Past Medical History: see triage record Now: No Reviewed Nursing Documentation: PMH: Agreed; PSxH: Agreed Nursing Documentation-PMH Past Medical History: No History, Except For Hx Cardiac Problems: No Hx Hypertension: Yes Hx Pacemaker: No Hx Asthma: No Hx COPD: No Hx Diabetes: Yes Hx Cancer: No Hx Gastrointestinal Problems: No Hx Dialysis: No Hx Neurological Problems: No Hx Cerebrovascular Accident: No Hx Seizures: Yes - Last one was 10/2018 Social History: Denies: smoking, alcohol use, drug use, other Social History Narrative denies Review of Systems All Other Systems: negative except mentioned in HPI Physical Exam Vital Signs Date Time Temp Pulse Resp B/P (MAP) Pulse Ox O2 Delivery O2 Flow Rate FiO2 11/30/18 13:47 82 16 174/102 (126) 97 11/30/18 14:00 98.3 Room Air Sp02 EP Interpretation: reviewed, normal Labs Laboratory Tests Test 11/30/18 15:45 11/30/18 16:45 11/30/18 16:55 12/01/18 05:20 White Blood Count 6.8 K/UL (4.8-10.8) Red Blood Count 5.34 M/UL (4.20-5.40) Hemoglobin 16.1 G/DL (12.0-16.0) H Hematocrit 47.4 % (37.0-47.0) H Mean Corpuscular Volume 89 FL (80-99) Mean Corpuscular Hemoglobin 30.1 PG (27.0-31.0) Mean Corpuscular Hemoglobin Concent 33.9 G/DL (32.0-36.0) Red Cell Distribution Width 12.7 % (11.6-14.8) Platelet Count 108 K/UL (150-450) L Mean Platelet Volume 10.4 FL (6.5-10.1) H Neutrophils (%) (Auto) 73.7 % (45.0-75.0) Lymphocytes (%) (Auto) 17.9 % (20.0-45.0) L Monocytes (%) (Auto) 6.2 % (1.0-10.0) Eosinophils (%) (Auto) 0.6 % (0.0-3.0) Basophils (%) (Auto) 1.6 % (0.0-2.0) Prothrombin Time 11.4 SEC (9.30-11.50) Prothromb Time International Ratio 1.1 (0.9-1.1) Activated Partial Thromboplast Time 31 SEC (23-33) Lactic Acid Level 1.20 mmol/L (0.4-2.0) Troponin I 0.000 ng/mL (0.000-0.056) Sodium Level 144 MMOL/L (136-145) Potassium Level 3.8 MMOL/L (3.5-5.1) Chloride Level 107 MMOL/L (98-107) Carbon Dioxide Level 22 MMOL/L (21-32) Anion Gap 15 mmol/L (5-15) Blood Urea Nitrogen 11 mg/dL (7-18) Creatinine 0.7 MG/DL (0.55-1.30) Estimat Glomerular Filtration Rate > 60 mL/min (>60) Glucose Level 104 MG/DL (74-106) Calcium Level 9.1 MG/DL (8.5-10.1) Phosphorus Level 3.8 MG/DL (2.5-4.9) Magnesium Level 1.7 MG/DL (1.8-2.4) L Total Bilirubin 1.2 MG/DL (0.2-1.0) H Direct Bilirubin 0.5 MG/DL (0.0-0.3) H Aspartate Amino Transf (AST/SGOT) 72 U/L (15-37) H Alanine Aminotransferase (ALT/SGPT) 38 U/L (12-78) Alkaline Phosphatase 283 U/L (46-116) H Total Creatine Kinase 70 U/L (26-308) Creatine Kinase MB 1.0 NG/ML (0.0-3.6) Creatine Kinase MB Relative Index 1.4 Pro-B-Type Natriuretic Peptide 209 pg/mL (0-125) H Total Protein 8.1 G/DL (6.4-8.2) Albumin 3.0 G/DL (3.4-5.0) L Globulin 5.1 g/dL Albumin/Globulin Ratio 0.6 (1.0-2.7) L Lipase 51 U/L (73-393) L Phenytoin (Dilantin) Level < 0.5 ug/mL (10-20) L Test 12/01/18 05:30 White Blood Count 5.2 K/UL (4.8-10.8) Red Blood Count 4.71 M/UL (4.20-5.40) Hemoglobin 14.5 G/DL (12.0-16.0) Hematocrit 41.3 % (37.0-47.0) Mean Corpuscular Volume 88 FL (80-99) Mean Corpuscular Hemoglobin 30.7 PG (27.0-31.0) Mean Corpuscular Hemoglobin Concent 35.1 G/DL (32.0-36.0) Red Cell Distribution Width 12.3 % (11.6-14.8) Platelet Count 102 K/UL (150-450) L Mean Platelet Volume 11.5 FL (6.5-10.1) H Neutrophils (%) (Auto) 73.5 % (45.0-75.0) Lymphocytes (%) (Auto) 23.1 % (20.0-45.0) Monocytes (%) (Auto) 2.9 % (1.0-10.0) Eosinophils (%) (Auto) 0.0 % (0.0-3.0) Basophils (%) (Auto) 0.5 % (0.0-2.0) Sodium Level 146 MMOL/L (136-145) H Potassium Level 4.2 MMOL/L (3.5-5.1) Chloride Level 113 MMOL/L (98-107) H Carbon Dioxide Level 20 MMOL/L (21-32) L Anion Gap 13 mmol/L (5-15) Blood Urea Nitrogen 15 mg/dL (7-18) Creatinine 0.8 MG/DL (0.55-1.30) Estimat Glomerular Filtration Rate > 60 mL/min (>60) Glucose Level 158 MG/DL (74-106) H Hemoglobin A1c 5.5 % (4.3-6.0) Calcium Level 9.2 MG/DL (8.5-10.1) Total Bilirubin 0.9 MG/DL (0.2-1.0) Aspartate Amino Transf (AST/SGOT) 63 U/L (15-37) H Alanine Aminotransferase (ALT/SGPT) 34 U/L (12-78) Alkaline Phosphatase 259 U/L (46-116) H Troponin I 0.000 ng/mL (0.000-0.056) Total Protein 8.3 G/DL (6.4-8.2) H Albumin 3.0 G/DL (3.4-5.0) L Globulin 5.3 g/dL Albumin/Globulin Ratio 0.6 (1.0-2.7) L Triglycerides Level 66 MG/DL (30-150) Cholesterol Level 142 MG/DL (< 200) LDL Cholesterol 95 mg/dL (<100) HDL Cholesterol 39 MG/DL (40-60) L Cholesterol/HDL Ratio 3.6 (3.3-4.4) Amylase Level 32 U/L (25-115) Lipase 50 U/L (73-393) L Thyroid Stimulating Hormone (TSH) 0.175 uiU/mL (0.358-3.740) General Appearance: well appearing, no apparent distress, alert Head: normocephalic EENT: PERRL/EOMI, normal ENT inspection Neck: supple Respiratory: normal breath sounds, no respiratory distress Cardiovascular: normal rate Gastrointestinal: normal inspection, non tender, soft, normal bowel sounds, non -distended Rectal: deferred Genitourinary: no CVA tenderness Musculoskeletal: normal inspection, back normal Neurologic: alert, responsive Psychiatric: normal inspection Skin: normal inspection, normal color, no rash, warm/dry, palpation normal, well hydrated Lymphatic: normal inspection, no adenopathy Current Medications Current Medications Medications (Trade) Dose Ordered Sig/Stephanie Route PRN Reason Start Time Stop Time Status Last Admin Dose Admin Atorvastatin Calcium (Lipitor) 20 mg BEDTIME ORAL 12/01/18 21:00 12/31/18 20:59 Clonidine HCl (Catapres Tab) 0.1 mg Q4H PRN ORAL For High Blood Pressure 11/30/18 22:45 12/30/18 22:44 12/01/18 01:07 Dextrose/Sodium Chloride 1,000 ml @ 100 mls/hr Q10H IV 11/30/18 22:45 12/30/18 22:44 11/30/18 23:45 Hydromorphone HCl (Dilaudid) 0.5 mg Q4H PRN IVP severe pain 11/30/18 22:45 12/07/18 22:44 12/01/18 08:45 Iopamidol (Isovue-300 100ml) 100 ml NOW PRN INJ Radiology Procedure 11/30/18 19:15 Ketorolac Tromethamine (Toradol 30mg) 30 mg Q12H PRN IV Mild Pain (Pain Scale 1-3) 11/30/18 22:45 12/05/18 22:44 Lorazepam (Ativan 2mg/ml 1ml) 1 mg Q6H PRN IV Agitation 11/30/18 22:45 12/07/18 22:44 12/01/18 02:17 Morphine Sulfate (Morphine Sulfate) 2 mg Q6H PRN IVP Moderate Pain (Pain Scale 4-6) 11/30/18 22:45 12/07/18 22:44 Nifedipine (Adalat) 10 mg DAILY ORAL 12/01/18 09:00 12/31/18 08:59 UNV Pantoprazole (Protonix) 40 mg DAILY IVP 12/01/18 09:00 12/31/18 08:59 12/01/18 08:44 Phenytoin (Dilantin) 100 mg THREE TIMES A DAY ORAL 12/01/18 09:00 12/31/18 08:59 12/01/18 08:44 GI: Plan Problems: (1) Abnormal LFTs (2) Abdominal pain (3) Altered mental state (4) Dehydration Plan Head CT reviewed negative Will obtain abdominal ultrasound given abdominal pain and abnormal liver function test Okay to start clear liquid diet after imaging study, advance as tolerated Pain management Zofran as needed Occult blood to rule out any GI bleed ppi follow labs outpatient GI procedures Discussed with Dr. Solomon. Thank you for this patient referral, we will follow. The patient was seen and examined at bedside and all new and available data was reviewed in the patients chart. I agree with the above findings, impression and plan. (Patient seen earlier today. Signature stamp does not reflect patient encounter time.). - MD Flaquita DobbinsDignity Health Arizona Specialty HospitalYariel CAMARGO Dec 01, 2018 10:39
[2018-12-01 12:00] VITALS: BP 153/86
[2018-12-01] MEDS: Docusate 100mg tablet ORAL SCH ×2 (12:48→17:30)
--- NOTE | 2018-12-01 15:00 | NUR ---
NURSE NOTES: Pt sleeping spouse asked to let her rest
--- NOTE | 2018-12-01 16:30 | History and Physical Report ---
DATE OF ADMISSION: 11/30/2018 SOURCE OF INFORMATION: Boyfriend. HISTORY OF PRESENT ILLNESS: The patient is a 63-year-old female who reportedly within the last 3 to 4 days prior to admission was complaining of abdominal pain. The patient was brought to the emergency room. Initial evaluation in the emergency room shows slight elevation of the blood pressure with hypernatremia. The patient at the time of evaluation is suffering from pain. Therefore, the boyfriend is source of information. The patient otherwise reports that she had no prior surgeries. Otherwise, has not had any nausea, vomitus, diarrhea, constipation, or any other problems in the past. Initial imaging shows no major problem in the head. Chest x-ray is unremarkable. REVIEW OF SYSTEMS: All 14 elements of review of review of systems reviewed as above. SOCIAL HISTORY: The patient lives by herself. She has children. She has a boyfriend. No significant history of illicit drug abuse, smoking or alcohol abuse reported. PAST MEDICAL HISTORY: Diabetes, hypertension, seizure disorders, psychiatric disorder, hyperlipidemia. HOME MEDICATIONS: Including but not limited to the glyburide, metformin, nifedipine, phenytoin. ALLERGIES: NKDA. PHYSICAL EXAMINATION: VITAL SIGNS: Blood pressure 160/80, temperature 98.2, pulse oximetry 98% on room air, pulse rate 90, respiratory rate 18. HEAD AND NECK: Atraumatic and normocephalic. CHEST: Clear to auscultation. HEART: S1 and S2. Regular rate and rhythm. ABDOMEN: Soft. No organomegaly. MUSCULOSKELETAL: No gross lateralized motor deficit. Limited evaluation. NEUROLOGY: The patient is awake; however, is not communicative verbally secondary to the pain. LABORATORY DATA: Dated 11/30/2018, shows sodium 144, potassium 3.8. AST 72, alkaline phosphatase 283. Troponin x1 is negative. Hemoglobin 16.1. ASSESSMENT: 1. Acute gastritis. 2. Abnormal LFT. 3. Diabetes type 2. 4. Hyperthyroidism-borderline. 5. Hypernatremia. 6. Polycythemia. 7. Psychiatric disorder. 8. GI and DVT prophylaxis. PLAN OF CARE: Keep the patient NPO. Continue with seizure medications. We will check the serum level for the phenytoin. We will obtain the CT scan of the abdomen and pelvis. Psychiatric is notified. GI consulted. Maryann Arrieta M.D. DR: Paola JOB#: [id number] CC:
--- NOTE | 2018-12-01 16:45 | NUR ---
NURSE NOTES: Undergoing ultrasound unable to offer nifedipine at this time
[2018-12-01] MEDS: Dicyclomine 10mg Cap ORAL SCH (17:31)
[2018-12-01] MEDS: Morphine Sulfate 2mg/ml Inj(IV/IM USE ONLY) IVP PRN (17:32)
[2018-12-01] MEDS: NIFEdipine 10mg cap ORAL SCH (17:33)
--- NOTE | 2018-12-01 17:39 | NUR ---
NURSE NOTES: Spoke to Flaquita DIRECTOR CHILD ABUSE THERAPY regarding diet and new order received. Order read back and carried out.
--- NOTE | 2018-12-01 18:30 | NUR ---
NURSE NOTES: Pt required supervision through out shift , restless, sitting up in bed , sitting at edge of bed, will abruptly stand up then sit down. Had clearer perception late in the afternoon, began talking. Education and pt teaching attempted to be reinforced, lacks baseline for pt teaching at this time. Stool remains pending, pt currently sleeping. Attempted to reinsert a different iv line pain yelling, began yelling when wiped wit alcohol swab automatic typewriter inspector showed her swab " I dont like to be stuck" Memorial Adviser recovered iv line, to ensure patency since pt was yelling with line was flushed. urged that fluids are stopped, oral fluids encouraged. Bed is locked , side rails are padded Bed pad alarm on
--- NOTE | 2018-12-01 18:51 | NUR ---
NURSE NOTES: Spoke to regarding IV fluid and new order received. Order read back and carried out.
--- NOTE | 2018-12-01 19:35 | NUR ---
NURSE NOTES: Received a report from SRAVAN Infante. Pt is in stable condition. Confused. On room air. at the bedside. No pain/discomfort noted. IV site is patent and intact. Bed in lowest position. Bed alarm is on. Call light within reach. Will continue to monitor.
[2018-12-01 20:00] VITALS: BP 134/84
--- NOTE | 2018-12-01 20:16 | NUR ---
HAND-OFF: Report given to Amie HINSON.
--- NOTE | 2018-12-01 20:17 | NUR ---
HAND-OFF: Report given to Amie made aware of uncollected stool, and restless bx.
[2018-12-01] MEDS ORDERED: Atorvastatin 20mg tab ORAL SCH (21:00)
[2018-12-02] VITALS: BP 134/75
--- NOTE | 2018-12-02 | NUR ---
NURSE NOTES: Informed the pt and her that the pt is going to be NPO starting at 0000 because later in the morning, the pt is scheduled for CT of the abdomen/pelvis w/o contrast. of the pt verbalized understanding. Will continue to monitor.
--- NOTE | 2018-12-02 00:35 | Diagnostic Imaging Report ---
EXAM: US Abdomen Complete CLINICAL HISTORY: ABD PAIN TECHNIQUE: Real-time ultrasound of the abdomen (complete) with image documentation. COMPARISON: Correlation with CT abdomen dated 06/11/17. FINDINGS: Liver: There is cirrhosis of the liver. No intrahepatic bile duct dilation. Gallbladder: Status post cholecystectomy. Common bile duct: The common bile duct measures 5 mm in diameter. No stones. Pancreas: The pancreas is partially obscured by bowel gas. Kidneys: A 6 mm echogenic focus is seen in the right kidney concerning for possible calculus. This is not seen on the prior CT abdomen. Spleen: The spleen is enlarged measuring 13.2 cm. Aorta: Unremarkable. No aneurysm. Inferior vena cava: Unremarkable. IMPRESSION: 1. Suspect 6 mm nonobstructing right renal calculus. 2. Cirrhosis of the liver.
[2018-12-02] MEDS: HYDROmorphone 1mg/ml Carpuject IVP PRN ×2 (00:41→04:59)
[2018-12-02 04:00] VITALS: BP 144/66
--- NOTE | 2018-12-02 07:00 | NUR ---
HAND-OFF: Report given to SRAVAN Infante.
--- NOTE | 2018-12-02 07:40 | NUR ---
NURSE NOTES: Pt is sitting up in bed. states that pt is fearful of enclosed spaces, and refuses to have abdominal ct. Pt talking this morning " I do not want to do it" Ativan offered before procedure, with refusal. Dr Arrieta contacted, gave okay to DC abdominal ultrasound, . gave okay to restart meals.
[2018-12-02 08:00] VITALS: BP 152/76
--- NOTE | 2018-12-02 08:13 | NUR ---
NURSE NOTES: collision repair technician is here to draw blood , refused for her to have blood draw. Pt agreed interjected, " How many times are you going to take her blood." " I want to talk to the Dr" The Dr ordered the labs mortgage underwriter replied. stated that he did not want her to do any more test until he spoke to the Dr personally
--- NOTE | 2018-12-02 08:18 | NUR ---
NURSE NOTES: Informed of pending test for occult blood. Supervisor Transcribing Operators entered room last night to obtain specimen from hat and it was urine. Supervisor Transcribing Operators informed the purpose of the hat in order to see if blood is in stool. " They see see what they can with the thing they did yesterday , referring to ultrasound. does not appear to understand instructions nor rational for procedures
--- NOTE | 2018-12-02 08:42 | General Progress Note ---
Assessment/Plan Problem List: (1) Cirrhosis ICD Codes: K74.60 - Unspecified cirrhosis of liver SNOMED: 00685061 (2) Abnormal LFTs ICD Codes: R94.5 - Abnormal results of liver function studies SNOMED: 180631787 (3) Abdominal pain ICD Codes: R10.9 - Unspecified abdominal pain SNOMED: 41298568 (4) Headache ICD Codes: R51 - Headache SNOMED: 76778601 Qualifiers: Qualified Codes: R51 - Headache Status: stable Assessment/Plan: per Abd ua patient has cirrhosis patient denies any h/o liver DZ still has epigastric pain refused any further lab drawn refuses EGD and colonoscopy wants to be discharged gave her my car for out patient fu advance diet Subjective ROS Limited/Unobtainable: Yes Allergies: Coded Allergies: No Known Allergies (Unverified , 08/12/13) Objective Last 24 Hour Vital Signs Date Time Temp Pulse Resp B/P (MAP) Pulse Ox O2 Delivery O2 Flow Rate FiO2 12/02/18 08:00 97.9 66 18 152/76 (101) 12/02/18 04:00 98.0 67 19 144/66 (92) 99 12/02/18 01:11 97.9 12/02/18 00:00 97.9 71 19 134/75 (94) 98 12/01/18 21:00 Room Air 12/01/18 20:00 98.1 88 18 134/84 (101) 97 12/01/18 17:33 90 175/100 12/01/18 12:00 98.0 18 153/86 (108) 97 12/01/18 09:00 Room Air Intake and Output 12/01/18 12/02/18 19:00 07:00 # Voids 2 2 Height (Feet): 5 Height (Inches): 7.00 Weight (Pounds): 180 General Appearance: alert EENT: normal ENT inspection Neck: supple Cardiovascular: normal rate Respiratory/Chest: lungs clear Abdomen: soft, hypoactive bowel sounds, tender Extremities: non-tender Tristen Solomon MD Dec 02, 2018 08:42
--- NOTE | 2018-12-02 08:47 | NUR ---
NURSE NOTES: Dr Arrieta gave orders to place Dr Thomas for consults due to pt capacity. Significant other at bedside. Pt is ao to name only child like bx.
[2018-12-02] MEDS: Docusate 100mg tablet ORAL SCH ×2 (08:56→13:00)
[2018-12-02] MEDS: Dicyclomine 10mg Cap ORAL SCH (08:56)
[2018-12-02 08:57] VITALS: BP 152/76
[2018-12-02] MEDS: Pantoprazole Inj IVP SCH ×2 (08:57→09:00)
[2018-12-02] MEDS: NIFEdipine 10mg cap ORAL SCH (08:57)
[2018-12-02] MEDS: Phenytoin 100mg cap ORAL SCH ×2 (08:57→13:00)
[2018-12-02] MEDS: Morphine Sulfate 2mg/ml Inj(IV/IM USE ONLY) IVP PRN (08:59)
--- NOTE | 2018-12-02 09:30 | NUR ---
NURSE NOTES: Pt significant other refused all treatment for blood pressure check labs and procedures. Risk and benefit explained
--- NOTE | 2018-12-02 09:55 | General Progress Note ---
Assessment/Plan Status: stable Assessment/Plan: S: I dont want to do my Abdominal test O: seems in mild distress. family/relative at the bed side PHYSICAL EXAMINATION:HEAD AND NECK: Atraumatic and normocephalic. CHEST: Clear to auscultation.HEART: S1 and S2. Regular rate and rhythm. ABDOMEN: Soft. No organomegaly.MUSCULOSKELETAL: No gross lateralized motor deficit. Limited evaluation. NEUROLOGY: The patient is awake; however, is not communicative verbally secondary to the pain and is lethargic. LABORATORY and meds for Dec 02, are reviewed ASSESSMENT: 1. Acute gastritis. 2. Cirrhosis 3. Diabetes type 2. 4. Hyperthyroidism-borderline. 5. Hypernatremia. 6. Polycythemia. 7. Psychiatric disorder. 8. GI and DVT prophylaxis. 9. Non compliance with medical advise PLAN OF CARE: Will check Hepatits panel Notes from GI reviewed Advised that is not medically clear at this time family/relative at the bed side, reported that is the legal with phone confirmation of the Son ( per the RN) Would like to leave AMA Subjective Allergies: Coded Allergies: No Known Allergies (Unverified , 08/12/13) Objective Last 24 Hour Vital Signs Date Time Temp Pulse Resp B/P (MAP) Pulse Ox O2 Delivery O2 Flow Rate FiO2 12/02/18 08:57 66 152/76 12/02/18 08:00 97.9 66 18 152/76 (101) 12/02/18 04:00 98.0 67 19 144/66 (92) 99 12/02/18 01:11 97.9 12/02/18 00:00 97.9 71 19 134/75 (94) 98 12/01/18 21:00 Room Air 12/01/18 20:00 98.1 88 18 134/84 (101) 97 12/01/18 17:33 90 175/100 12/01/18 12:00 98.0 18 153/86 (108) 97 Intake and Output 12/01/18 12/02/18 19:00 07:00 # Voids 2 2 Height (Feet): 5 Height (Inches): 7.00 Weight (Pounds): 180 Maryann Arrieta MD Dec 02, 2018 09:55
--- NOTE | 2018-12-02 10:00 | NUR ---
NURSE NOTES: Dr Thomas here to see the pt , deemed that pt did not have capacity to make decisions , Dr asked for the year pt responded " Its December" Bx continues to be anxious
--- NOTE | 2018-12-02 12:00 | NUR ---
NURSE NOTES: Significant other remains anxious pt wants to smoke . Dr Arrieta phoned made aware of pt concerns and statement in regards to discharge. stated to relay information to business services analyst and case management, junior technical writer spoke to Mai and left a verbal essage for Shikha molina. Son arrived stated that gentlemen her is his mothers and they live with each other. Pt would like to take or significant other home , but is reluctant to sign AMA form. Dr kendall
--- NOTE | 2018-12-02 12:15 | NUR ---
NURSE NOTES: Pt significant other is anxious stated he will wait for the Dr , minutes later he wants to leave. Bx is odd. Dr Arrieta arrived and spoke to pt. SW and case management phoned , per Dr request. Since pt has been deemed to lack capacity.
--- NOTE | 2018-12-02 12:30 | NUR ---
NURSE NOTES: Pt [ }]agreed to sign AMA , AMA explained by charge nurse and mortgage underwriter, Did not have a clear understanding of what AMA meant " I just want to take her home" " This is not skilled nursing" Risk and benefits explained. Pt signed AMA form belongings given. Regeneration Operator Pt did not have IV acces prior to discharge , name tag removed. Regeneration Operator went down to pharmacy to retrieve personal medications did not see pt and partner down stairs.
--- NOTE | 2018-12-02 14:48 | NUR ---
Social Service Note Patient's requesting to sign patient out AMA. showed resistance to medical intervention of patient while hospitalized. Physician questioned if Derik De La Torre was "" and appropriate decision maker. Patient's son came to unit and indicated that Derik De La Torre was patient's and stated he is the primary decision maker. Son aware that was signing patient out AMA. Previous ER visits indicates Derik was the primary contact. APS report filed [phone] file #[id number]
--- NOTE | 2018-12-02 15:30 | NUR ---
NURSE NOTES: per report of charge nurse pt phoned for his medication , chart will not be broken down to prevent misplacing pharmacy receipt.
--- NOTE | 2018-12-02 16:49 | NUR ---
CASE MANAGEMENT: INITIAL REVIEW 63 YO F BIBA FROM HOME CC: HEADACHE PMHx: HTN. SI:AMS. WEAKNESS. HR 82 RR 16 B/P 174/102 SATS 97% ON RA MG 1.7 TBILI 1.2 DBILI 0.5 AST 72 ALP 283 BNP 209 LIPASE 51 IS: NS BOLUS X1 DEXAMETHASONE IV X1 COMPAZINE IV X1 BENADRYL IV X1 NS BOLUS X1 PATIENT ADMITTED TO MED/SURG 11/30/2018 @ 1917 DCP: PATIENT TO BE DISCHARGED TO HOME ONCE MEDICALLY CLEARED. PLAN OF CARE: NPO CT ABD/PELVIS SSW CONSULT PSYCH CONSULT
--- NOTE | 2018-12-03 01:15 | Consultation ---
DATE OF CONSULTATION: 12/02/2018 CONSULTING PHYSICIAN: Gene Tejeda M.D. HISTORY OF PRESENT ILLNESS: This is a 63-year-old female with a history of bronchitis, hypertension, neuropathy, seizure disorder, abnormal LFTs, and cirrhosis who has been admitted to the hospital due to abdominal pain. The patient has been presenting with confusion. She has been unable to understand, process, communicate, or appreciate informations given to her. Her was in the room who was very erratically and stated that he wants to take the patient home. They were unable to provide any viable information as why the patient is to be taken home. The patient was disoriented to date and has poor insight into the situation she is. PAST PSYCHIATRIC HISTORY: Unknown. The patient was unable to provide any history. PAST MEDICAL HISTORY: Diabetes, hypertension, seizure disorder, hyperlipidemia. ALLERGIES: No known drug allergies. SUBSTANCE ABUSE HISTORY: No known history of illicit drug use or alcohol. MENTAL STATUS EXAMINATION: The patient is alert, oriented times self. She knows she is in the hospital. Disoriented to date. Has poor insight about the situation she is in. Her mood is neutral. Affect is flat. Thought process is concrete. Thought content, no suicidal or homicidal ideation. The patient was paranoid and bizarre. Insight and judgment is impaired. Cognition is impaired. ASSESSMENT: Witter I Dementia. Witter II Deferred. Witter III As above. Witter IV Low to moderate. Witter V 40 to 50. PLAN: 1. The patient lacks capacity to make decisions. So, next of kin should make decisions. The patient may not leave A as she is unable to make any decisions. 2. I notified Dr. Arrieta. 3. Interviewed the patient with the presence of the nurse. Gene Tejeda M.D. DR: [facility] JOB#: [id number] CC:
--- NOTE | 2018-12-03 10:55 | Discharge Summary ---
Discharge Summary Discharge Summary _ DATE OF ADMISSION: 11/30/2018 DATE OF DISCHARGE 12/02/2018 Patient left AGAINST MEDICAL ADVICE REASON FOR ADMISSION: 63 years old female with past medical history of hypertension, seizure disorder , diabetes mellitus, depression, bipolar disorder , presented with left-sided recurrent headache gradual in onset, started 3 days ago. Patient also reported abdominal /epigastric pain, no nausea, no diarrhea. Upon evaluation blood pressure was elevated 174/102. Laboratory work-up revealed no leukocytosis , polycythemia with hemoglobin 16.1 and hematocrit 47.4. Platelet count 108. Lactic acid 1.2. Troponin negative. EKG revealed sinus rhythm , no acute ischemic changes. Stable renal parameters. Magnesium 1.7 Glucose 104. AST 72, ALT 38 , pro BNP 2 9 Lipase 61. Albumin 3 . Chest x-ray revealed no acute cardiopulmonary pathology. CT scan of the head revealed no evidence of acute intracranial pathology. In ED patient received headache cocktail . Patient refused CT of the abdomen and pelvis. Patient was subsequently admitted . CONSULTANTS: GI specialist Dr. Solomon psychiatrist [facility] COURSE: Patient admitted to medical surgical floor. Patient was kept n.p.o. Patient was continued on IV fluids. GI specialist closely followed. Antiemetic were on board as needed. Pain management was addressed. GI prophylaxis with PPI provided. Abdominal ultrasound demonstrated 6 mm nonobstructing right renal calculi. Cirrhosis of the liver. LFT were monitored, trending down , AST from 72 down to 63 and ALT remained stable. Mild elevation in AST probably likely due to liver cirrhosis. Patient refused EGD and colonoscopy. Patient still reported epigastric pain . Pain management was addressed , and pain was controlled. Patient denied any history of liver disease , even though abdominal ultrasound demonstrated liver cirrhosis. Patient declined EGD and colonoscopy. Patient declined CT scan of abdomen and pelvis,. Patient was started on a clear liquids and diet was advanced as tolerated . Patient was able to tolerate diet. Patient was strongly advised for outpatient follow-up with GI specialist( information provided ). Bowel regimen instituted. Troponin x2 were negative. Magnesium replaced. Lipid panel was stable. Blood pressure was managed with calcium channel mitch. Statin continued. Clonidine was on board as needed. TSH was low , free T and T4 were ordered, but not collected due to the fact, that patient signed AGAINST MEDICAL ADVICE. HIV test ,ammonia level, hepatitis panel ,and drug screen were all ordered, but not collected due to the fact that patient signed AGAINST MEDICAL ADVICE. Psychiatrist seen and evaluated patient. Per psychiatrist patient had dementia. Seizure precautions maintained. Dilantin continued. No evidence of seizure activity while in the hospital. slag worker seen the patient . Patient's signed patient against medical advise. Son was aware of this fact. is a primary decision maker. The risks and consequences of signing AGAINST MEDICAL ADVICE were discussed with patient's and patient in detail. They verbalized understanding, nevertheless signed AMA form and left. FINAL DIAGNOSES: Liver cirrhosis Abnormal LFT Abdominal pain Probably acute gastritis Dehydration Polycythemia-resolved Hypernatremia Headache Hypertension Diabetes mellitus type 2 Dementia Hyperthyroidism , borderline Seizure disorder Noncompliance I have been assigned to dictate discharge summary for this account. I was not involved in the patient's management. Carol Haines NP Dec 03, 2018 10:55
== END 2018-12-02 12:55 | disposition left against medical advice (07) | DRG 392 ==
LOC: EDBD 13:51 → EMR 14:17 → 3E 19:17 → EDBEDREQ 20:34
DX: K29.00 Acute gastritis without bleeding (principal); E87.0 Hyperosmolality and hypernatremia; E86.0 Dehydration; E11.9 Type 2 diabetes mellitus without complications; I10 Essential (primary) hypertension; G40.909 Epilepsy, unspecified, not intractable, without status epilepticus; E78.5 Hyperlipidemia, unspecified; Z79.84 Long term (current) use of oral hypoglycemic drugs; K74.60 Unspecified cirrhosis of liver; R10.13 Epigastric pain; R51 Headache; D75.1 Secondary polycythemia; E05.90 Thyrotoxicosis, unspecified without thyrotoxic crisis or storm; Z91.19 Patient's noncompliance with other medical treatment and regimen; F03.90 Unspecified dementia, unspecified severity, without behavioral disturbance, psychotic disturbance, mood disturbance, and anxiety
CPT/HCPCS: 36415; 70450; 71045; 76700; 80053; 80061; 80185; 82150; 82248; 82550; 82553; 82962; 83036; 83605; 83690; 83735; 83880; 84100; 84443; 84484; 85025; 85610; 85730; 87040; 93005; 93306; 96361; 96374; 96375; 99285; J1815

== ENCOUNTER 2019-04-13 13:53 | Emergency (ER) | payer MEDICARE, OTHER ==
[~2019-04-13] VITALS: Ht 165.1 cm; Wt 77.1 kg
[2019-04-13 13:54] VITALS: BP 150/99
--- NOTE | 2019-04-13 13:54 | NUR ---
ED Nurse Note: PT BROUGHT IN BY AMBULANCE FOR C/O FLU LIKE S/SX X 3 DAYS. PT HAS BEEN COUGHING X 1 MONTH. PT ALSO REPORTS HAVING N/V X 2 DAYS.
[2019-04-13] MEDS ORDERED: Ketorolac 30mg Inj IV ONE (14:00)
--- NOTE | 2019-04-13 14:01 | Emergency Room Report ---
History of Present Illness General Chief Complaint: Nausea, Vomiting, and Diarrhea Source: Patient Present Illness [facility] Disclaimer: Please note that this report is being documented using [employer] technology. This can lead to erroneous entry secondary to incorrect interpretation by the dictating instrument. HPI: 63-year-old female with a history of hypertension, diabetes, bipolar disorder, schizophrenia with paranoid features presents for evaluation of flulike symptoms. Her and primary furniture servicer is here to provide some history as the patient has difficulty recalling events which states is her baseline. Reports 3 to 4 days of flulike symptoms including headaches, cough, nasal congestion, nausea, brief episodes of emesis, diarrhea, diffuse myalgias and arthralgias. Unsure about fevers. She is not eating or drinking for the past 3 days. Reports some abdominal cramping and possible heat dysuria. Denies hematuria. Denies rash. PMH: Seizure disorder, bipolar disorder, diabetes, hypertension PSH: Ankle and wrist repair Allergies: None reported Social Hx: Daily smoker Allergies: Coded Allergies: No Known Allergies (Unverified , 08/12/13) Patient History Last Menstrual Period: NA Now: No Nursing Documentation-PMH Past Medical History: No History, Except For Hx Hypertension: Yes - 5 years Hx Pacemaker: No Hx Asthma: Yes Hx COPD: No Hx Diabetes: Yes Hx Cancer: No Hx Gastrointestinal Problems: No Hx Dialysis: No Hx Neurological Problems: Yes Hx Cerebrovascular Accident: No Hx Seizures: Yes - 3-6 month ago: staring and tonic movement Review of Systems All Other Systems: negative except mentioned in HPI Physical Exam Vital Signs Date Time Temp Pulse Resp B/P (MAP) Pulse Ox O2 Delivery O2 Flow Rate FiO2 04/13/19 13:44 97.9 74 18 157/102 (120) 99 Room Air General: Awake and alert, no acute distress HEENT: NC/AT. EOMI. dry mucous membranes Neck: Supple, trachea midline Chest Wall: No tenderness, no deformity Cardiovascular: RRR. S1 and S2 normal. No murmur appreciated Resp: Normal work of breathing. Nonproductive cough during exam. No wheezes or crackles Abdomen: Abdomen is soft, nondistended. Nontender Skin: Intact. No abrasions, laceration or rash over the exposed skin MSK: Normal tone and bulk. Moving all extremities. No obvious deformity. Neuro: Awake and alert. Limited insight into her medical conditions. Moving all extremities. Is responding appropriately Medical Decision Making Diagnostic Impression: Primary Impression: Viral syndrome Additional Impression: Elevated blood pressure reading ER Course 63-year-old female presents for evaluation of 4 days flulike syndrome. Differential includes but not limited to viral syndrome, URI, bronchitis, pneumonia, COPD, gastroenteritis, pancreatitis, UTI. Start metabolic infectious work-up. Start IV fluids, antiemetics and Toradol for pain and discomfort. Disposition depending on lab results. Laboratory Tests Test 04/13/19 13:59 04/13/19 16:48 White Blood Count 7.7 K/UL (4.8-10.8) Red Blood Count 5.39 M/UL (4.20-5.40) Hemoglobin 16.0 G/DL (12.0-16.0) Hematocrit 47.6 % (37.0-47.0) H Mean Corpuscular Volume 88 FL (80-99) Mean Corpuscular Hemoglobin 29.7 PG (27.0-31.0) Mean Corpuscular Hemoglobin Concent 33.6 G/DL (32.0-36.0) Red Cell Distribution Width 10.7 % (11.6-14.8) L Platelet Count 94 K/UL (150-450) L Mean Platelet Volume 11.5 FL (6.5-10.1) H Neutrophils (%) (Auto) % (45.0-75.0) Lymphocytes (%) (Auto) % (20.0-45.0) Monocytes (%) (Auto) % (1.0-10.0) Eosinophils (%) (Auto) % (0.0-3.0) Basophils (%) (Auto) % (0.0-2.0) Differential Total Cells Counted 100 Neutrophils % (Manual) 68 % (45-75) Lymphocytes % (Manual) 27 % (20-45) Monocytes % (Manual) 5 % (1-10) Eosinophils % (Manual) 0 % (0-3) Basophils % (Manual) 0 % (0-2) Band Neutrophils 0 % (0-8) Platelet Estimate Decreased L Platelet Morphology Normal Red Blood Cell Morphology Normal Sodium Level 143 MMOL/L (136-145) Potassium Level 4.1 MMOL/L (3.5-5.1) Chloride Level 107 MMOL/L (98-107) Carbon Dioxide Level 23 MMOL/L (21-32) Anion Gap 13 mmol/L (5-15) Blood Urea Nitrogen 19 mg/dL (7-18) H Creatinine 0.8 MG/DL (0.55-1.30) Estimate Glomerular Filtration Rate > 60 mL/min (>60) Glucose Level 133 MG/DL (74-106) H Calcium Level 9.2 MG/DL (8.5-10.1) Total Bilirubin 1.2 MG/DL (0.2-1.0) H Direct Bilirubin 0.4 MG/DL (0.0-0.3) H Aspartate Amino Transferase (AST) 55 U/L (15-37) H Alanine Aminotransferase (ALT) 34 U/L (12-78) Alkaline Phosphatase 253 U/L (46-116) H Total Protein 8.7 G/DL (6.4-8.2) H Albumin 3.4 G/DL (3.4-5.0) Globulin 5.3 g/dL Albumin/Globulin Ratio 0.6 (1.0-2.7) L Lipase 72 U/L (73-393) L Urine Color Pale yellow Urine Appearance Clear Urine pH 7 (4.5-8.0) Urine Specific [place] 1.015 (1.005-1.035) Urine Protein Negative (NEGATIVE) Urine Glucose (UA) Negative (NEGATIVE) Urine Ketones 2+ (NEGATIVE) H Urine Blood Negative (NEGATIVE) Urine Nitrite Negative (NEGATIVE) Urine Bilirubin Negative (NEGATIVE) Urine Urobilinogen Normal MG/DL (0.0-1.0) Urine Leukocyte Esterase Negative (NEGATIVE) Microbiology Date/Time Source Procedure Growth Status 04/13/19 14:50 Nasal Nares - Final Complete 04/13/19 14:50 Nasal Nares - Final Complete Chest X-Ray Diagnostic Results Chest X-Ray Diagnostic Results : Chest X-Ray Ordered: Yes # of Views/Limited/Complete: 1 View Indication: Shortness of Breath EP Interpretation: Yes Interpretation: no consolidation, no effusion, no pneumothorax, no acute cardiopulmonary disease Impression: No acute disease Electronically Signed by: Electronically signed by Dr. Axel Mayorga Reevaluation Time: 17:29 Last Vital Signs Date Time Temp Pulse Resp B/P (MAP) Pulse Ox O2 Delivery O2 Flow Rate FiO2 04/13/19 13:44 97.9 74 18 157/102 (120) 99 Room Air Reevaluation Impression Chest x-ray unremarkable. Flu swabs are negative. Labs otherwise unremarkable save for slight elevations in alkaline phosphatase and bilirubin though they are just outside of normal limits. Likely this is a viral syndrome that should resolve over the next few days. The patient is found to have elevated blood pressure as well seen on prior admissions though she no longer takes any medications. She should follow-up with her PMD for repeat checks and possibly starting antihypertensive regimen. Also have her blood redrawn and rechecked. We discussed reasons to return to the emergency department as well as need to follow-up with her PMD. Family understands and agrees with treatment plan will be discharged home. Disposition: HOME, SELF-CARE Condition: Stable Axel Mayorga MD Apr 13, 2019 14:01
--- NOTE | 2019-04-13 14:12 | NUR ---
ED Nurse Note: PT IS REFUSING TO HAVE BLOOD DRAW/ IV INSERT. PT IS AT BEDSIDE CONVINCING PT
--- NOTE | 2019-04-13 14:18 | NUR ---
ED Nurse Note: CXR DONE AT BEDSIDE.
[2019-04-13 14:51] LABS: HEMATOCRIT 47.6 % (37.0-47.0); MEAN CORPUSCULAR VOLUME 88 FL (80-99); PLATELET COUNT 94 K/UL (150-450); RED BLOOD COUNT 5.39 M/UL (4.20-5.40); RED CELL DISTRIBUTION WIDTH 10.7 % (11.6-14.8); WHITE BLOOD COUNT 7.7 K/UL (4.8-10.8)
[2019-04-13 15:01] LABS: ANION GAP 13 mmol/L (5-15); BLOOD UREA NITROGEN 19 mg/dL (7-18); CALCIUM 9.2 MG/DL (8.5-10.1); CARBON DIOXIDE 23 MMOL/L (21-32); CHLORIDE 107 MMOL/L (98-107); CREATININE 0.8 MG/DL (0.55-1.30); POTASSIUM 4.1 MMOL/L (3.5-5.1); SODIUM 143 MMOL/L (136-145)
[2019-04-13 15:11] LABS: ALANINE AMINOTRANSFERASE 34 U/L (12-78); ALBUMIN 3.4 G/DL (3.4-5.0); ALBUMIN/GLOBULIN RATIO 0.6 (1.0-2.7); ALKALINE PHOSPHATASE 253 U/L (46-116); ASPARTATE AMINO TRANSFERASE 55 U/L (15-37); BILIRUBIN,TOTAL 1.2 MG/DL (0.2-1.0)
[2019-04-13 15:13] LABS: BILIRUBIN,DIRECT 0.4 MG/DL (0.0-0.3)
--- NOTE | 2019-04-13 15:13 | NUR ---
ED Nurse Note: BP 200/115, Dr. Stock notified, catapress given to patient. Per , patient has hypertension and does not take medication at home.
[2019-04-13 15:20] VITALS: BP 168/91
--- NOTE | 2019-04-13 15:20 | NUR ---
ED Nurse Note: Patient cleared for DC by Dr. Mayorga. Patient AxO x 4, no s/s of acute distress. IV and ID band removed. Patient walks with steady gait, took all belongings.
--- NOTE | 2019-04-13 16:58 | Diagnostic Imaging Report ---
Indication: Shortness of breath Technique: One view of the chest Comparison: 11/30/2018 Findings: No acute infiltrates, effusions, or congestion. Tortuous calcified aorta. Upper limits normal heart size. Upper mediastinum unremarkable. No significant change Impression: No acute process.
[2019-04-13 17:04] LABS: APPEARANCE,URINE CLEAR; BILIRUBIN, URINE NEGATIVE (NEGATIVE); COLOR,URINE PALE YELLOW; GLUCOSE, URINE (UA) NEGATIVE (NEGATIVE); KETONES,URINE 2+ (NEGATIVE); LEUKOCYTE ESTERASE ,URINE NEGATIVE (NEGATIVE); NITRITE,URINE NEGATIVE (NEGATIVE); PH,URINE 7 (4.5-8.0); PROTEIN,URINE NEGATIVE (NEGATIVE); UROBILINOGEN,URINE NORMAL MG/DL (0.0-1.0)
== END 2019-04-13 15:20 | disposition home or self-care (01) ==
LOC: EDBD 13:53 → EMR 14:00
DX: B34.9 Viral infection, unspecified (principal); I10 Essential (primary) hypertension; E11.9 Type 2 diabetes mellitus without complications; G40.909 Epilepsy, unspecified, not intractable, without status epilepticus; F17.200 Nicotine dependence, unspecified, uncomplicated; F31.9 Bipolar disorder, unspecified
CPT/HCPCS: 36415; 71045; 80053; 81003; 82248; 83690; 85007; 85025; 86710; 96361; 96374; 96375; 99284; J1885; J2405; J7030